=== PATIENT | female | born 1940 | race Caucasian/White ===

== ENCOUNTER 2017-04-03 16:45 | Emergency (ER) | payer MEDICARE ==
[~2017-04-03] VITALS: Ht 154.9 cm; Wt 74.6 kg
[2017-04-03 16:56] VITALS: BP 162/74; PULSE 84; RESP 16; TEMP 98.1; O2SAT 97
[2017-04-03 17:50] VITALS: BP 147/68; PULSE 74; RESP 16; O2SAT 98
[2017-04-03] MEDS ORDERED: LOSA50TA PO (17:59)
[2017-04-03] MEDS ORDERED: LEVO.05 PO (17:59)
--- NOTE | 2017-04-03 18:04 | PD ---
HPI . Headache Chief Complaint: Headache Time Seen by Provider: 17:56 Travel History International Travel<30 days: No Contact w/Intl Traveler<30days: No Traveled to known affect area: No History of Present Illness HPI This patient presents with the chief complaint of occipital pain. Onset was a couple weeks ago. She states that she occasionally had. Brief, sharp pain in the occiput. She states that she had a bad pain in the occiput a couple of days ago. She had another bad pain today. All of her pains have lasted 5-10 seconds. She has no associated symptoms. She currently has no pain. She is concerned that she was having a stroke. She reports no modifiers. PFSH Social History Tobacco Use: No Allergies-Medications (Allergen,Severity, Reaction): Coded Allergies: No Known Allergies (Verified Allergy, Unknown, 04/03/17) Reported Meds & Prescriptions Reported Meds & Active Scripts Active Reported Losartan (Losartan Potassium) 50 Mg Tab 25 Mg PO DAILY Synthroid (Levothyroxine Sodium) 50 Mcg Tab 50 Mcg PO DAILY Review of Systems Except as stated in HPI: all other systems reviewed are Neg General / Constitutional: No: Fever, Chills Eyes: No: Diploplia, Blurred Vision HENT: Positive: Headaches, No: Lightheadedness Gastrointestinal: No: Nausea, Vomiting Physical Exam Narrative GENERAL: Awake and alert and in no acute distress. This patient is a very healthy-appearing 77-year-old woman. SKIN: Warm and dry. Good color. HEAD: Normocephalic/atraumatic. EYES: Pupils are equal. Extraocular movements are intact. NECK: Normal range of motion. Supple. CARDIOVASCULAR: Regular rate and rhythm. RESPIRATORY: Nonlabored respirations. MUSCULOSKELETAL: Atraumatic. NEUROLOGICAL: A and O 3. Cranial nerves are intact. Control Panel Operator are full and equal. Gait. [id number]-[id number] exam are intact. PSYCHIATRIC: Appropriate mood and affect. Data Data Last Documented VS Vital Signs Date Time Temp Pulse Resp B/P (MAP) Pulse Ox O2 Delivery O2 Flow Rate FiO2 04/03/17 17:57 16 97 Room Air 04/03/17 17:50 74 147/68 (94) 04/03/17 16:[address] Brain W/O Iv Contrast(Rout) (04/03/17 17:56) MDM Medical Decision Making Medical Screen Exam Complete: Yes Emergency Medical Condition: Yes Differential Diagnosis Differential diagnosis of headache includes but is not limited to migraine, muscle contraction headache, brain tumor, brain bleed Narrative Course This patient presents with very brief occipital pain. Last couple weeks. She reports a couple of bad pains during the last couple days. She is concerned that she is having a stroke. I have explained to her that strokes don't hurt. I will do a CT of her head for reassurance. CT: 1. Central cerebral atrophy. 2. Mild periventricular and subcortical white matter small vessel ischemic changes bilaterally. 3. No acute infarct, acute hemorrhage, mass effect or extra-axial fluid collections. The history, exam, diagnostic testing, and current condition do not suggest any significant pathology to warrant further testing, continued ED treatment, admission, or surgical evaluation at this point. No EMC was found. The patient 's condition is stable and appropriate for discharge. Diagnosis Primary Impression: Occipital pain Patient Instructions: Acute Headache (DC), General Instructions Disposition: 01 DISCHARGE HOME Condition: Stable Gayle Rodas MD Apr 03, 2017 18:04
--- NOTE | 2017-04-03 18:35 | RADRPT ---
EXAM DATE/TIME: 04/03/2017 18:24 [facility] COMPARISON: No previous studies available for comparison. INDICATIONS : Occipital head pain for two weeks. RADIATION DOSE: 59.48 CTDIvol (mGy) MEDICAL HISTORY : Hypertension. SURGICAL HISTORY : Tonsillectomy. Thyroidectomy. ENCOUNTER: Initial ACUITY: 2 weeks PAIN SCALE: 5/10 LOCATION: occipital TECHNIQUE: Multiple contiguous axial images were obtained of the head. Using automated exposure control and adj ustment of the mA and/or kV according to patient size, radiation dose was kept as low as reasonably a chievable to obtain optimal diagnostic quality images. DICOM format image data is available electro nically for review and comparison. FINDINGS: CEREBRUM: Central cerebral atrophy is noted. Mild periventricular and subcortical white matter small vessel isc hemic changes are noted bilaterally. No evidence of midline shift, mass lesion, hemorrhage or acute i nfarction. No extra-axial fluid collections are seen. POSTERIOR FOSSA: The cerebellum and brainstem are intact. The 4th ventricle is midline. The cerebellopontine angle i s unremarkable. EXTRACRANIAL: The visualized portion of the orbits is intact. SKULL: The calvaria is intact. No evidence of skull fracture. CONCLUSION: 1. Central cerebral atrophy. 2. Mild periventricular and subcortical white matter small vessel ischemic changes bilaterally. 3. No acute infarct, acute hemorrhage, mass effect or extra-axial fluid collections. Evan Guerra MD on April 03, 2017 at 18:32 Board Certified Radiologist. This report was verified electronically.
[2017-04-03 18:54] VITALS: BP 147/67
== END 2017-04-03 18:55 | disposition home or self-care (01) ==
LOC: PHED 16:45
DX: R51 Headache (principal)
CPT/HCPCS: 70450; 99284